=== PATIENT | male | born 1930 | race Two or more races ===

== ENCOUNTER → 2017-12-30 | Outpatient (CLI) | payer MEDICARE | END | disposition home or self-care (01) | LOC: SHCH 15:48 | PROVIDERS: ATTEND Internal Medicine Cardiovascular Disease | DX: I73.9 Peripheral vascular disease, unspecified (principal) | CPT/HCPCS: 93925 ==

== ENCOUNTER → 2018-01-06 | Outpatient (CLI) | payer MEDICARE ==
[~2018-01-06] VITALS: Ht 175.3 cm; Wt 70.3 kg
[~2018-01-06] MED LIST: REGADENOSON 0.4 MG/5 ML PF SYG IVP SCH
== END | disposition home or self-care (01) ==
LOC: EDUNIT# 09:00 → SHCH 09:27
PROVIDERS: ATTEND Internal Medicine Cardiovascular Disease
DX: R07.9 Chest pain, unspecified (principal)
CPT/HCPCS: 78452; 93017; 96374; A9500 ×2; J2785

== ENCOUNTER 2018-08-21 06:38 | Day surgery (SDC) | payer MEDICARE ==
[2018-08-21] VITALS (8 sets, daily range): BP systolic 85–145; BP diastolic 35–70
[~2018-08-21] VITALS: Ht 172.7 cm; Wt 64.2 kg
[~2018-08-21 06:38] MED LIST changes: +METF-445 PO; -REGADENOSON 0.4 MG/5 ML PF SYG IVP SCH; +SODIUM CHLORIDE 0.9% 1000ML 1,000 ML IV ONE
[2018-08-21] MEDS ORDERED: [UNRECOGNIZED DRUG - CODE] PO (07:46)
[2018-08-21] MEDS ORDERED: PROPOFOL 10 MG/ML 20ML VIAL IV ONE (08:54)
--- NOTE | 2018-08-21 11:39 | NUR ---
Update Cathryn Moe from Dr. Mike Meyer's office verified that she received the patient's EUS report that was faxed earlier today.
== END 2018-08-21 10:11 | disposition home or self-care (01) ==
LOC: ENDO 06:38 → DAH 06:38 → ENDO 10:11
PROVIDERS: ATTEND Internal Medicine
DX: K31.89 Other diseases of stomach and duodenum (principal); D49.0 Neoplasm of unspecified behavior of digestive system; Z79.899 Other long term (current) drug therapy; Z79.84 Long term (current) use of oral hypoglycemic drugs; I10 Essential (primary) hypertension; E11.9 Type 2 diabetes mellitus without complications; Z80.49 Family history of malignant neoplasm of other genital organs; Z98.890 Other specified postprocedural states; Z87.891 Personal history of nicotine dependence; K21.9 Gastro-esophageal reflux disease without esophagitis
CPT/HCPCS: 43237; 82948 ×2; 93005; A4606; J2704; J7030; 43231